=== PATIENT | female | born 1945 | race Caucasian/White ===

== ENCOUNTER → 2016-05-08 | Day surgery (SDC) | payer OTHER | END | disposition home or self-care (01) | LOC: US 05-06 08:30 → SDCH 05-06 10:30 → EDSTATUS 08:30 → US 08:30 → SDCH 08:30 | DX: Z12.11 Encounter for screening for malignant neoplasm of colon (principal); D12.6 Benign neoplasm of colon, unspecified; K21.0 Gastro-esophageal reflux disease with esophagitis; K29.50 Unspecified chronic gastritis without bleeding; K44.9 Diaphragmatic hernia without obstruction or gangrene; K57.30 Diverticulosis of large intestine without perforation or abscess without bleeding; J45.909 Unspecified asthma, uncomplicated; G47.33 Obstructive sleep apnea (adult) (pediatric); K21.9 Gastro-esophageal reflux disease without esophagitis; M19.90 Unspecified osteoarthritis, unspecified site; M81.0 Age-related osteoporosis without current pathological fracture; Z79.82 Long term (current) use of aspirin; Z98.51 Tubal ligation status; Z98.890 Other specified postprocedural states; Z99.89 Dependence on other enabling machines and devices | CPT/HCPCS: J2704 ==